=== PATIENT | male | born 1990 | race Caucasian/White ===

== ENCOUNTER 2016-11-07 18:57 | Emergency (ER) | payer OTHER ==
[~2016-11-07] VITALS: Ht 167.6 cm; Wt 78.0 kg
--- NOTE | 2016-11-07 22:00 | REPUSA ---
Clinical history: Pain. Findings: Real-time ultrasound imaging of the testicles and scrotum was performed. The right testicle measures 4.5 x 3.0 x 3.5 cm. The left testicle measures 4.8 x 2.2 x 3.4 cm. The testicles demonstrat e normal echo texture and echogenicity. There is a tiny cyst in the head of the left epididymis measu ring 0.3 x 0.2 x 0.6 cm. Normal color Doppler flow and arterial waveforms are seen bilaterally, altho ugh there is slightly increased vascularity in the right testicle. No fluid collections are seen. Impression: 1. No focal testicular abnormality appreciated. However, there is slightly asymmetric vascularity, wi th increased vascularity the right testicle. Early orchitis cannot completely be excluded. Follow-up is suggested as clinically indicated. 2. Subcentimeter simple cyst in the left epididymis.
[2016-11-07 23:46] LABS: BASO % 0.5 % (0.0-1.0); EOS # 0.2 K/mm3 (0.0-0.50); EOS % 3.1 % (0.0-3.0); LARGE UNSTAINED CELL # 0.1 K/mm3 (0.0-0.4); LARGE UNSTAINED CELL % 2.1 % (0.0-4.0); LYMPH # 2.5 K/mm3 (1.5-6.5); LYMPH % 41.5 % (24.0-44.0); MEAN CORPUSCULAR HEMOGLOBIN 31.6 pg (27.0-33.0); MEAN CORPUSCULAR VOLUME 92.9 fl (80.0-96.0); MONO # 0.5 K/mm3 (0.0-0.8); NEUTROPHILS # 2.6 K/mm3 (1.8-7.7); NEUTROPHILS % 44.8 % (36.0-66.0); PLATELET COUNT, AUTOMATED 263 k/mm3 (150-450); RED CELL DISTRIBUTION WIDTH 12.6 % (11.5-14.5); WHITE BLOOD COUNT 5.8 K/mm3 (4.0-10.0)
[2016-11-08 00:06] LABS: ANION GAP 8 MEQ/L (8-16); BLOOD UREA NITROGEN 14 MG/DL (7-18); CARBON DIOXIDE LEVEL 28 MEQ/L (21-32); CHLORIDE LEVEL 106 MEQ/L (98-107); CREATININE FOR GFR 0.96 MG/DL (0.70-1.30); GLOMERULAR FILTRATION RATE > 60.0 (>60); GLUCOSE, FASTING 84 MG/DL (70-105); POTASSIUM SERUM 4.4 MEQ/L (3.5-5.1); SODIUM LEVEL 142 MEQ/L (136-145)
[2016-11-08] MEDS ORDERED: LEVA500T PO (00:25)
[2016-11-08] MEDS ORDERED: LevoFLOXacin 500 MG TABLET PO ONE (00:30)
[2016-11-08 00:34] VITALS: BP 118/76
--- NOTE | 2016-11-08 06:24 | ED PDOC ---
Provider Note dr duran faxed formal report of scrotal us for Mehgan Badillo MD Nov 08, 2016 06:24
== END 2016-11-08 00:35 | disposition home or self-care (01) ==
LOC: M ED 20:38
DX: N45.2 Orchitis (principal); F17.220 Nicotine dependence, chewing tobacco, uncomplicated